=== PATIENT | female | born 1935 | race African-American/Black ===

== ENCOUNTER 2017-05-08 09:59 | Emergency (ER) | payer OTHER ==
[~2017-05-08] VITALS: Ht 157.5 cm; Wt 63.5 kg
[~2017-05-08 09:59] MED LIST: ALPRAZOLAM 0.50.5 M1 PO; ASPIRIN81 M2 PO; CALCIUM 500 +1 EAC5; CALCIUM 500 +1 EAC6 PO; MOTION RELIEF25 MG PO; MULTIVITAMINS; MULTIVITAMINS1 EAC7; NOHOMEMEDICATIONS; NORVASC 5 MG TAB5 MG PO; NORVASC10 MG PO; REMERON15 MG PO; VALIUM2 MG PO; XANAX 0.5 MG0.5 M1 PO; ZESTRIL20 MG PO
[2017-05-08 10:50] LABS: URINE BILIRUBIN NEGATIVE (Negative); URINE BLOOD NEGATIVE (Negative); URINE CLARITY CLEAR; URINE COLOR YELLOW; URINE GLUCOSE-RANDOM* NEGATIVE (Negative); URINE KETONES NEGATIVE (Negative); URINE LEUKOCYTES NEGATIVE (Negative); URINE NITRITE NEGATIVE (Negative); URINE PROTEIN (DIPSTICK) NEGATIVE (Negative); URINE UROBILINOGEN 0.2 E.U./dl (0.2-1.0)
[2017-05-08] MEDS ORDERED: TRAZODONE HCL100 MG PO (10:51)
[2017-05-08 11:51] LABS: ABSOLUTE NEUTROPHILS 5.2 thou/uL (1.4-8.2); BASOPHILS 0.4 % (0.0-2.0); EOSINOPHILS 0.8 % (0.0-3.0); HEMATOCRIT 32.1 % (37.0-47.0); HEMOGLOBIN 10.7 gm/dL (12.0-15.0); LYMPHOCYTES 20.7 % (24.0-44.0); MCH 29.9 pg (26.0-34.0); MCHC 33.3 g/dL (28.0-37.0); MCV 89.8 fL (80.0-100.0); MONOCYTES 11.5 % (1.0-8.0); PLATELET COUNT 411 thou/uL (150-400); POLYS 66.6 % (36.0-66.0); RBC 3.58 mil/uL (4.20-5.00); RDW 14.8 % (10.5-14.5); WBC 7.7 thou/uL (4.0-11.0)
[2017-05-08 11:58] LABS: CALCIUM 9.5 mg/dL (8.5-10.1); CREATININE 0.9 mg/dL (0.6-1.0)
[2017-05-08 12:04] LABS: ALBUMIN 3.3 g/dL (3.4-5.0); TOTAL BILIRUBIN 0.2 mg/dL (<0.1-1.0)
[2017-05-08 15:42] VITALS: BP 178/60
== END 2017-05-08 15:44 | disposition home or self-care (01) ==
LOC: ER 09:59
PROVIDERS: Physician Assistant
DX: R19.04 Left lower quadrant abdominal swelling, mass and lump (principal); I10 Essential (primary) hypertension; F17.210 Nicotine dependence, cigarettes, uncomplicated; Z88.0 Allergy status to penicillin

== ENCOUNTER 2017-06-13 10:17 | Inpatient (IN) | payer OTHER ==
[~2017-06-13] VITALS: Ht 157.5 cm; Wt 68.0 kg
--- NOTE | ~2017-06-13 | H ---
[facility] [place] [address] HISTORY AND PHYSICAL Name: TRAVIS NEGRO Room #: 424-P [facility] IN M.R.#: [id number] Admission: 06/13/17 Attend Phys: Nick Lawson MD Discharge: 06/19/17 Date of : 31 Report #: [id number] THIS REPORT FOR: //name// CC: Thai Lawson DATE OF SERVICE: 06/13/2017 LOCATION: 424. CHIEF COMPLAINT: Abdominal pain. HISTORY OF PRESENT ILLNESS: This is an 81-year-old female with a past medical history significant for hypertension and ____ from [place], was here in the ER about a month ago with left lower quadrant pain. On evaluation with CT, she was found to have a questionable mass/diverticulitis. The patient refused admission and because of the septic active signs of infection at that point of time, discharged with outpatient followup with GI and surgery for further evaluation. The patient followed up with the surgeon and elected not to go for surgical procedure or further evaluation, returned to the ER today because of recurrent symptoms for the last few days with progressive worsening. The patient denies any fever or chills. The patient denies any nausea or vomiting. The patient denies any blood per rectum. The patient denies any significant change in her weight. The patient denies any history suggestive of food poisoning. REVIEW OF SYSTEMS: Negative other than mentioned in the HPI. See H and P for current medications, social history and allergies. PHYSICAL EXAMINATION: ABDOMEN: Left lower quadrant tenderness noted. Bowel sounds positive. No palpable organomegaly. CARDIOVASCULAR: S1 and S2. RESPIRATORY: Clear air entry bilaterally. LYMPH NODES: No palpable lymph nodes in the axilla, groin or neck. LOWER EXTREMITIES: No edema. Homans sign negative. NEUROLOGIC: Alert and oriented x 3. No focal neurological deficits. LABORATORY DATA: On lab examination, electrolytes normal. Normal renal function with creatinine of 1.1. Negative for lactic acid. Normal LFTs. White count of 10, H and H 9 and 27 and platelet count of 519 mostly secondary to acute phase reactant. UA is negative. CT abdomen shows 3.7 x 6.2 cm size collection in the sigmoid colon with stool collection adjacent to it. It was felt quite large ____ between the sigmoid colon. ASSESSMENT AND PLAN: An 81-year-old female status post diverticulitis/[place] [address] HISTORY AND PHYSICAL Name: TRAVIS NEGRO Room #: 424-P [facility] IN .#: [id number] Admission: 06/13/17 Attend Phys: Nick Lawson MD Discharge: 06/19/17 Date of : 31 Report #: [id number] past medical history of hypertension who presented with persistent symptoms, found to have large abscess collection, diverticulitis with abscess. Surgical consult with Dr. Baldwin' input appreciated. Dr. Baldwin has talked to IR as collection not amenable for a drain. Recommend IV antibiotics and ID consultation for now with close followup. Clear liquid diet. No advance of diet until repeat imaging after 72 hours. Hypertension, continue home medication of amlodipine 10 mg with ____ pain control with morphine and Tylenol as needed. Continue gentle IV hydration with D5 normal saline for now. Zofran for nausea as needed. The patient received a dose of cephalexin and Flagyl for now. We will continue the same until further ID recommendations. Blood cultures done in the ER. We will continue to follow them. DVT prophylaxis with Lovenox. <ELECTRONICALLY SIGNED> By: Nick Lawson MD 07/02/17 0836 [id number] Nick Lawson MD /nt
--- NOTE | ~2017-06-13 | HC ---
[facility] [place] [address] CONSULTATION Name: TRAVIS NEGRO Room #: 424-P ADM IN .R.#: [id number] Admission: 06/13/17 Attend Phys: Nick Lawson MD Discharge: Date of : 31 Report #: [id number] THIS REPORT FOR: //name// CC: Thai Lawson DATE OF SERVICE: 06/14/2017 ATTENDING PHYSICIAN: Nick Lawson MD. REASON FOR EVALUATION: Diverticular abscess. HISTORY OF PRESENT ILLNESS: Chart reviewed, patient examined. This is an 81-year-old female with history of hypertension, otherwise fairly healthy, actually presented in April of this year in the Emergency Room with left lower quadrant pain, was found to have some acute diverticulitis. She apparently improved on the approach. She was encouraged to follow up with surgery, which she did not do. She presented on 06/13/2017 to the Emergency Room with complaints of intermittent left lower quadrant pain and more recently severe in the last couple of days. It is not clear that she has had any systemic illness. Denies any fevers. Appetite has been generally pretty good. No nausea, emesis or diarrhea. Did have imaging. Lactic acid was 1.0. CMP was generally unremarkable. Albumin of 2.7. CBC, white count elevated 10.0. CT abdomen and pelvis shows abscess along the posterior aspect of the proximal sigmoid colon increased in size from April. She was empirically started on antimicrobials with levofloxacin and metronidazole. SHE IS ALLERGIC TO PENICILLIN. Surgery evaluation has been requested. ALLERGIES: MENTIONED ABOVE, PENICILLIN ALLERGY. CURRENT MEDICATIONS: Include levofloxacin, metronidazole, morphine as needed, acetaminophen, ondansetron. PAST MEDICAL HISTORY: Hypertension. SOCIAL HISTORY: Former smoker. No ethanol. FAMILY HISTORY: Noncontributory. REVIEW OF SYSTEMS: As above. Denies any pulmonary related complaints. PHYSICAL EXAMINATION: GENERAL: She is pleasant, alert, cooperative, in mild distress. VITAL SIGNS: T-max 99.2, more recently 98.5; pulse 68; respirations 20; blood pressure 137/56. SKIN: Warm, dry. No rashes or adenopathy. [facility] [address] [place] [address] CONSULTATION Name: TRAVIS NEGRO Room #: 424-P [facility] IN .R.#: [id number] Admission: 06/13/17 Attend Phys: Nick Lawson MD Discharge: Date of : 31 Report #: [id number] HEENT: Unremarkable. NECK: Supple. LUNGS: Generally clear, somewhat diminished. HEART: Regular, soft systolic murmur. ABDOMEN: Soft. There are no peritoneal signs. Mild discomfort, tenderness in the left lower quadrant. GENITOURINARY AND RECTAL: Deferred. LABORATORY DATA: Most recent CBC: White count 7.6, H and H 8.1 and 23.9, platelets 461. TSH of 1.587. CT as noted above. Urinalysis unremarkable. Lactic acid 1.0. Electrolytes: Sodium 140, potassium 3.5, chloride 106, bicarb 28, anion gap of 6, BUN and creatinine 14 and 1.1. LFTs unremarkable. Albumin of 2.7, total protein 7.4. Estimated GFR of 57. ASSESSMENT: Pelvic abscess on the bases of perforation due to diverticulitis, apparently has been ongoing for a number of weeks. She is still resistant to having any surgical intervention. We will continue antimicrobial therapy. At this point, she is not overtly toxic. I am less inclined to this getting resolved spontaneously. I am not sure if IR has been able to weigh in terms of if it is feasible to do it percutaneously. <ELECTRONICALLY SIGNED> By: Luca Molina MD 06/14/17 1733 [id number] [id number] Luca Molina MD /nt
[~2017-06-13 10:17] MED LIST changes: +TRAZODONE HCL100 MG PO
[2017-06-13 10:23] VITALS: BP 170/45
[2017-06-13] MEDS ORDERED: IRON325 PO (10:42)
[2017-06-13 11:00] LABS: HEMATOCRIT 27.2 % (37.0-47.0); MCH 29.6 pg (26.0-34.0); MCHC 33.1 g/dL (28.0-37.0); MCV 89.3 fL (80.0-100.0); RBC 3.05 mil/uL (4.20-5.00); RDW 14.4 % (10.5-14.5)
[2017-06-13 11:07] LABS: CALCIUM 9.2 mg/dL (8.5-10.1); CREATININE 1.1 mg/dL (0.6-1.0); POTASSIUM 3.5 mmol/L (3.5-5.1)
[2017-06-13 11:13] LABS: ALBUMIN 2.7 g/dL (3.4-5.0); TOTAL BILIRUBIN 0.3 mg/dL (<0.1-1.0); TOTAL PROTEIN 7.4 g/dL (6.4-8.2)
[2017-06-13 11:40] LABS: URINE BILIRUBIN NEGATIVE (Negative); URINE BLOOD NEGATIVE (Negative); URINE CLARITY CLEAR; URINE COLOR YELLOW; URINE GLUCOSE-RANDOM* NEGATIVE (Negative); URINE KETONES NEGATIVE (Negative); URINE LEUKOCYTES-REFLEX NEGATIVE (Negative); URINE NITRITE-REFLEX NEGATIVE (Negative); URINE PROTEIN (DIPSTICK) NEGATIVE (Negative); URINE SPECIFIC GRAVITY <= 1.005 (1.005-1.035); URINE UROBILINOGEN 0.2 E.U./dl (0.2-1.0)
[2017-06-13 13:16] VITALS: BP 132/52
[2017-06-13 13:49] LABS: APTT 33.5 Seconds (24.5-32.8); PROTIME 10.7 Seconds (9.3-11.4)
[2017-06-13 15:09] VITALS: BP 132/44
[2017-06-13 19:39] VITALS: BP 171/51
[2017-06-13 23:11] VITALS: BP 145/80
[2017-06-14 03:28] VITALS: BP 148/60
[2017-06-14 04:28] LABS: HEMATOCRIT 23.9 % (37.0-47.0); HEMOGLOBIN 8.1 gm/dL (12.0-15.0); MCHC 33.7 g/dL (28.0-37.0); MCV 89.1 fL (80.0-100.0); RBC 2.69 mil/uL (4.20-5.00); RDW 14.3 % (10.5-14.5); WBC 7.6 thou/uL (4.0-11.0)
[2017-06-14 08:02] VITALS: BP 137/56
[2017-06-14 17:35] VITALS: BP 160/71
[2017-06-14 20:30] VITALS: BP 153/69
[2017-06-15 04:30] VITALS: BP 134/52
[2017-06-15 07:00] VITALS: BP 143/55
[2017-06-15 15:47] VITALS: BP 128/73
[2017-06-15 20:00] VITALS: BP 158/72
[2017-06-16 04:00] VITALS: BP 136/61
[2017-06-16 06:32] LABS: HEMOGLOBIN 8.2 gm/dL (12.0-15.0); MCH 29.5 pg (26.0-34.0); MCHC 32.9 g/dL (28.0-37.0); MCV 89.5 fL (80.0-100.0); PLATELET COUNT 521 thou/uL (150-400); RBC 2.79 mil/uL (4.20-5.00); RDW 14.3 % (10.5-14.5); WBC 7.1 thou/uL (4.0-11.0)
[2017-06-16 06:44] LABS: CALCIUM 8.5 mg/dL (8.5-10.1); CREATININE 0.8 mg/dL (0.6-1.0)
[2017-06-16 07:50] VITALS: BP 158/66
[2017-06-16 08:08] LABS: ABSOLUTE NEUTROPHILS 4.3 thou/uL (1.4-8.2); ANISOCYTOSIS SLIGHT; POIKILOCYTOSIS SLIGHT
[2017-06-16 15:15] VITALS: BP 167/63
[2017-06-16 20:00] VITALS: BP 170/84
[2017-06-17 06:39] LABS: HEMATOCRIT 23.6 % (37.0-47.0); HEMOGLOBIN 7.9 gm/dL (12.0-15.0); MCH 29.6 pg (26.0-34.0); MCHC 33.4 g/dL (28.0-37.0); MCV 88.7 fL (80.0-100.0); RBC 2.66 mil/uL (4.20-5.00); RDW 14.3 % (10.5-14.5); WBC 4.9 thou/uL (4.0-11.0)
[2017-06-17 07:02] LABS: ALBUMIN 2.2 g/dL (3.4-5.0); CALCIUM 8.5 mg/dL (8.5-10.1); CREATININE 0.8 mg/dL (0.6-1.0); MAGNESIUM 1.6 mg/dL (1.8-2.4); POTASSIUM 3.1 mmol/L (3.5-5.1); TOTAL BILIRUBIN 0.2 mg/dL (<0.1-1.0); TOTAL PROTEIN 6.4 g/dL (6.4-8.2)
[2017-06-17 07:23] VITALS: BP 165/59
[2017-06-17] MEDS ORDERED: LEVAQUIN 500 M500 M1 PO (09:13)
[2017-06-17] MEDS ORDERED: FLAGYL500 MG PO (09:14)
[2017-06-17] MEDS ORDERED: HYDROCODON-ACE1 EAC8 PO (09:19)
[2017-06-17 15:55] VITALS: BP 143/49
[2017-06-17 20:30] VITALS: BP 153/75
[2017-06-18 04:30] VITALS: BP 144/65
[2017-06-18 07:35] VITALS: BP 107/69
[2017-06-18] MEDS ORDERED: MEROPENEM1 GM IV (11:35)
[2017-06-18] MEDS ORDERED: ZOFRAN ODT4 MG PO (11:36)
[2017-06-18 15:34] VITALS: BP 140/59
[2017-06-18 20:01] VITALS: BP 153/68
[2017-06-19 03:59] VITALS: BP 155/72
[2017-06-19 06:55] VITALS: BP 172/66
[2017-06-19 17:11] VITALS: BP 172/66
== END 2017-06-19 13:01 | DRG 871 ==
LOC: ER 10:17 → 4E 12:11 → EROBS 12:11 → 4E 15:10
PROVIDERS: Emergency Medicine; Hospitalist; Surgery
PROC: 05HB33Z Insertion of Infusion Device into Right Basilic Vein, Percutaneous Approach (ICD-10-PCS; principal; 2017-06-18)
DX: A41.9 Sepsis, unspecified organism (principal); E43 Unspecified severe protein-calorie malnutrition; K57.20 Diverticulitis of large intestine with perforation and abscess without bleeding; I10 Essential (primary) hypertension; D64.9 Anemia, unspecified; Z88.0 Allergy status to penicillin; Z87.891 Personal history of nicotine dependence
CPT/HCPCS: 10183; 27000